=== PATIENT | female | born 1995 | race Two or more races ===

== ENCOUNTER 2024-03-29 12:16 | Inpatient (IN) ==
[2024-03-29 13:47] LABS: ABS Basophils 0.1 10^3/uL (0.0-0.1); ABS Eosinophils 0.2 10^3/uL (0.0-0.5); ABS Lymphocytes 1.3 10^3/uL (1.0-4.8); ABS Monocytes 0.4 10^3/uL (0.0-0.9); ABS Neutrophils 2.6 10^3/uL (1.5-7.6); Eosinophil % 3.6 %; Hematocrit 40.1 % (35-45); Hemoglobin 13.4 g/dL (11.5-14.3); Lymphocyte % 28.9 %; Mean Corpuscular Hemoglobin 29.8 pg (27-33); Mean Corpuscular Hgb Conc 33.4 g/dL (31-36); Mean Corpuscular Volume 89.2 fL (80-97); Mean Platelet Volume 8.2 fL (7.5-11.2); Nucleated Red Blood Cells % 0.1 %/100WBC (0.0-0.8); Platelet Count 392 10^3/uL (150-450); Red Cell Distribution Width 13.9 % (12-17); White Blood Count 4.6 10^3/uL (3.8-11.8)
[2024-03-29 13:54] LABS: Urine Appearance Clear; Urine Bilirubin Negative (Negative); Urine Blood Negative (Negative); Urine Color Light-Yellow; Urine Glucose Negative (Negative); Urine Ketones Negative (Negative); Urine Nitrite Negative (Negative); Urine Protein Negative (Negative); Urine Urobilinogen Negative (Negative); Urine pH 5.5 (5.0-8.0)
[2024-03-29 14:09] LABS: Urine Benzodiazepine Screen None Detected (None Detect); Urine Cannabinoids Screen Presumptive Positive (None Detect); Urine Opiates Screen None Detected (None Detect)
[2024-03-29 14:10] LABS: ALT 32 U/L (7-52); AST 21 U/L (13-39); Albumin 4.4 g/dL (3.2-5.2); Albumin/Globulin Ratio 1.6 (1-3); Alkaline Phosphatase 74 U/L (35-149); Anion Gap 8 mmol/L (2-16); Blood Urea Nitrogen 14 mg/dL (6-24); CO2 Carbon Dioxide 25 mmol/L (22-32); Calcium 9.1 mg/dL (8.6-10.3); Chloride 103 mmol/L (101-111); Creatinine, Serum 0.66 mg/dL (0.51-0.95); Globulin 2.7 g/dL (2-4); Glucose 96 mg/dL (70-100); Potassium 3.9 mmol/L (3.5-5.0); Sodium 136 mmol/L (135-145); Total Bilirubin 0.8 mg/dL (0.2-1.0); Total Protein 7.1 g/dL (6.4-8.9); eGFR CKD-EPI 123.2 (>60)
[2024-03-29] MEDS ORDERED: Al Hydrox/Mg Hydrox/Simet LIQ 30 ML UDC PO PRN (18:57)
[2024-03-29 19:37] LABS: HCG Pregnancy < 0.60 mIU/mL
[2024-03-30 05:58] LABS: TSH Ultra Thyroid Stim Horm 1.61 mcIU/mL (0.34-5.60)
[2024-03-30 08:48] LABS: HDL Cholesterol 50.6 mg/dL
[2024-03-30] MEDS: Vitamin THERAPEUTIC TAB PO SCH (09:28)
[2024-04-01] MEDS: Venlafaxine XR 75 mg PO SCH (07:45)
[2024-04-03] MEDS: Nicotine GUM 2MG FRUIT FLAVOR PO PRN (07:50)
[2024-04-05 09:43] VITALS: BP 110/68
== END 2024-04-05 13:00 | disposition home or self-care (01) | DRG 755 ==
LOC: ED 12:16 → EDHOLD 17:42 → BSU 17:49
PROVIDERS: ADMIT Psychiatry & Neurology Psychiatry; ATTEND Psychiatry & Neurology Psychiatry

== ENCOUNTER 2024-04-16 11:52 | Inpatient (IN) ==
[2024-04-16 12:44] LABS: ABS Basophils 0.1 10^3/uL (0.0-0.1); ABS Eosinophils 0.2 10^3/uL (0.0-0.5); ABS Lymphocytes 1.4 10^3/uL (1.0-4.8); ABS Monocytes 0.6 10^3/uL (0.0-0.9); ABS Neutrophils 3.4 10^3/uL (1.5-7.6); Hematocrit 33.3 % (35-45); Hemoglobin 11.1 g/dL (11.5-14.3); Lymphocyte % 24.6 %; Mean Corpuscular Hemoglobin 30.2 pg (27-33); Mean Corpuscular Hgb Conc 33.4 g/dL (31-36); Mean Corpuscular Volume 90.2 fL (80-97); Mean Platelet Volume 8.2 fL (7.5-11.2); Platelet Count 270 10^3/uL (150-450); Red Blood Count 3.69 10^6/uL (3.63-4.92); Red Cell Distribution Width 13.8 % (12-17); White Blood Count 5.5 10^3/uL (3.8-11.8)
[2024-04-16 12:50] LABS: Urine Appearance Clear; Urine Bilirubin Negative (Negative); Urine Blood Negative (Negative); Urine Color Yellow; Urine Glucose Negative (Negative); Urine Ketones Trace (Negative); Urine Nitrite Negative (Negative); Urine Protein Trace (Negative); Urine Specific Gravity 1.037 (1.002-1.030); Urine Urobilinogen 1+ (Negative); Urine pH 5.5 (5.0-8.0)
[2024-04-16 13:07] LABS: Urine Benzodiazepine Screen None Detected (None Detect); Urine Cannabinoids Screen Presumptive Positive (None Detect); Urine Opiates Screen None Detected (None Detect)
[2024-04-16 13:20] LABS: ALT 65 U/L (7-52); AST 27 U/L (13-39); Acetaminophen < 15 mcg/mL; Albumin 3.9 g/dL (3.2-5.2); Albumin/Globulin Ratio 1.5 (1-3); Alcohol, S < 13 mg/dL (<13); Alkaline Phosphatase 76 U/L (35-149); Anion Gap 5 mmol/L (2-16); Blood Urea Nitrogen 19 mg/dL (6-24); CO2 Carbon Dioxide 28 mmol/L (22-32); Chloride 107 mmol/L (101-111); Globulin 2.6 g/dL (2-4); Glucose 105 mg/dL (70-100); Potassium 4.3 mmol/L (3.5-5.0); Salicylate < 2.50 mg/dL (<30); Sodium 140 mmol/L (135-145); Total Bilirubin 0.2 mg/dL (0.2-1.0); Total Protein 6.5 g/dL (6.4-8.9); eGFR CKD-EPI 89.9 (>60)
[2024-04-16 13:25] LABS: HCG Pregnancy < 0.60 mIU/mL
[2024-04-16 13:34] LABS: TSH Ultra Thyroid Stim Horm 0.32 mcIU/mL (0.34-5.60)
[2024-04-16 14:59] LABS: Free T4 0.72 ng/dL (0.61-1.12)
[2024-04-17] MEDS: Venlafaxine XR 75 mg PO ONE (08:21)
[2024-04-17] MEDS: Amphetamine MIXED SALT 10mgTAB PO ONE (08:22)
[2024-04-18] MEDS ORDERED: Al Hydrox/Mg Hydrox/Simet LIQ 30 ML UDC PO PRN (14:10)
[2024-04-19] MEDS: Venlafaxine XR 75 mg PO SCH (09:08)
[2024-04-20 08:18] LABS: HDL Cholesterol 56.5 mg/dL
[2024-04-20] MEDS: Venlafaxine XR 75 mg PO SCH (08:22)
[2024-04-25 07:57] VITALS: BP 119/82
== END 2024-04-25 14:24 | disposition home or self-care (01) | DRG 756 ==
LOC: ED 11:52 → EDHOLD 04-18 14:10 → BSU 04-18 15:32
PROVIDERS: ADMIT Psychiatry & Neurology Psychiatry; ATTEND Student in an Organized Health Care Education/Training Program